=== PATIENT | male | born 1945 | race Caucasian/White ===

== ENCOUNTER → 2016-11-06 | Day surgery (SDC) | payer MEDICARE, BC ==
[2016-11-01 19:57] VITALS: BMI 24.0
[~2016-11-06] MED LIST: DEXAMETHASONE 4 MG/ML VIAL IV ONE; FENTANYL 100 MCG/2 ML VIAL IV ONE; FENTANYL 100 MCG/2 ML VIAL IV PRN; HYDROmorphone 1 MG INJECTION IV PRN; ISOVUE-300 (61%) 50 ML ONE; LABETALOL 20 MG/4 ML SYRINGE IV PRN; LIDOCAINE 100 MG PFS IV ONE; Levofloxacin 500 mg/100 ml D5W 500 MG/100 ML RTU IV ONE; MEPERIDINE 25 MG/ML TUBEX IV PRN; MIDAZOLAM 2 MG/2 ML VIAL IV ONE; ONDANSETRON HCL 4 MG ODT TAB PO PRN; ONDANSETRON HCL 4 MG/2 ML VIAL IV ONE; ONDANSETRON HCL 4 MG/2 ML VIAL IV PRN; PROMETHAZINE 25 MG/ML VIAL IV PRN; PROPOFOL 200 MG/20 ML VIAL IV ONE; hydrALAZINE 20 MG/ML VIAL IV PRN
[2016-11-06 08:42] LABS: AUTOMATED BASOPHIL 0.7 % (0-2); AUTOMATED EOSINOPHIL 1.1 % (0-5); AUTOMATED LYMPH 13.2 % (17-44); AUTOMATED MONOCYTE 3.5 % (3-10); AUTOMATED NEUTROPHIL 81.5 % (45-76); MPV 7.3 fL (7.4-10.4)
--- NOTE | 2016-11-06 08:52 | SC.ANESPOS ---
Post-Anesthesia Note LOC: [facility] Calling Post-Anesthesia Assessment: Awake, Returned to Baseline, Hemodynamically Stable , Pain Control Adequate Phase I & II Recovery Complete: Yes Apparent Anesthesia Complication: No : N PACU Discharge Time: 12:00 - Vital Signs Blood Pressure: 185/88 Pulse: 65 Resp Rate: 16 O2 Sat: 98 Temp: 96.2 F - Comments Anesthesia Discharge Time Report Time 12:00
--- NOTE | 2016-11-06 08:54 | HIM.ANES ---
Anesthesia Evaluation & Plan Diagnoses: CALCULUS OF URETER (11/06/16) - Focused Review of Systems Cardiac History: Yes: Hx Hypertension, Hx Cardiac Disorders, Hx Abnormal Cholesterol/Hyperlipidemia HEENT: Yes: Hx Hearing Impairment ([place]), Hx Vision Problem, Other HEENT Problems Respiratory: Yes: Hx Snoring Gastrointestinal: Yes: Hx Gastroesophageal Reflux Disease (Controlled), Hx Gastrointestinal Disorders, Hx Diverticulosis, Hx Colonoscopy (06/2016), Hx Endoscopy (2013) Neurological/Musculoskeletal: Yes: Hx Back Pain No: Hx Neurological Disorders Physiological: Yes Hx Depression, Yes Hx Mental/Emotional Disorders Endocrine: Yes: Hx Non-Insulin Dependent Diabetes Blood/Autoimmune: No: Hx AIDS, Hx Hepatitis (type) Smoking Status: Never smoker Hx Stress Test (date): Yes (2013 NEGATIVE PER PATIENT) Other Surgical History: CYSTOSCOPY WITH JJ STENT, PARTIAL LEFT NEPHRECTOMY 2002 - Focused Physical Exam Mallampati: Class II Thyromental Distance: Greater than 3 Any problems with anesthesia, including nausea and vomiting?: Yes (N&V) Any relatives with a history of Malignant Hyperthermia?: No Does patient have a history of Malignant Hyperthermia?: No Beta Oscar given (if appropriate): Yes Does the patient have a history of Motion Sickness-: Yes Other: Problem List Problem Status Onset Hydronephrosis Acute Kidney stones Acute Allergies Allergy/AdvReac Type Severity Reaction Status Date / Time No Known Allergies Allergy Verified 11/01/16 19:48 Home Medications Medication Instructions Recorded Last Taken Type Atorvastatin Calcium [Lipitor] 40 mg PO QHS 11/01/16 10/31/16 History Carvedilol [Coreg] 3.125 mg PO BID 11/01/16 11/01/16 History Ciprofloxacin HCl [Cipro] 500 mg PO BID #20 tab 11/01/16 Unknown Rx Quinapril HCl [Accupril] 20 mg PO BID 11/01/16 11/01/16 History Sertraline HCl [Zoloft] 100 mg PO DAILY 11/01/16 11/01/16 History Tamsulosin HCl [Flomax] 0.4 mg PO DAILY 11/01/16 11/01/16 History Sitagliptin Phos/Metformin HCl 1 each PO BID 11/05/16 Unknown History [Janumet 50-1,000 mg Tablet] Height and Weight Patient's height 5 ft 9 in Patient's weight 158 lb BMI 24.0 - Anesthetic Plan Anesthesia Type: General ASA Class: 3 -: I have examined this patient and reviewed the medical record. The patient has been assessed prior to anesthesia. Risks and benefits of anesthesia and anesthetic technique options have been discussed and all questions answered. The patient accepts the risk and desires me to proceed with the planned anesthetic.
[2016-11-06 08:56] LABS: BLOOD UREA NITROGEN 13 MG/DL (9-20); CALCIUM 8.9 MG/DL (8.4-10.2); CALCULATED OSMOLALITY 277 MOs/Kg (270-290); CHLORIDE 103 mEq/L (98-107); GLUCOSE 176 MG/DL (70-99); SODIUM LEVEL 142 mEq/L (137-146)
--- NOTE | 2016-11-06 11:10 | HIMOPRPT ---
ESTIMATED BLOOD LOSS: DATE OF PROCEDURE: 11/06/16 PREOPERATIVE DIAGNOSIS: LEFT Ureteral Stone with Renal Colic. POSTOPERATIVE DIAGNOSIS Left: Ureteral Stone with Renal Colic. PROCEDURE PERFORMED: Cystoscopy, Left Ureteroscopy, Laser Ablation of StoneS, Retrograde Pyelogram and placement of a Double-J stent on the left\ side,24]cm in length [with] a string. ANESTHESIA: General. SURGEON: Adam Reza MD PROCEDURE IN DETAIL: The patient was taken to the operating room and was given general anesthesia. After that, patient was put in lithotomy position, and was prepped and draped in usual sterile fashion. C-arm and camera was used throughout the procedure as needed. A 23-Malawian cystoscope was introduced in the bladder. Bladder was examined. [There was no evidence of any tumors or stones]. Both ureteral orifices were normally located. Then, a [0.038] guidewire was passed through the Left ureteral orifice and guided into the area of the renal pelvis bypassing the stone on this side. Then, a balloon dilating catheter was passed over the guidewire and positioned across the area of the intramural ureter. The balloon was inflated to adequate pressure. Pressure in the balloon was maintained for 30 seconds. Balloon was then deflated and removed. Guidewire was left in. Cystoscope was removed and Ureteroscopy was carried out on this side until stones were visualized. A 365 laser fiber was passed and placed in contact with the stones and with the power settings at 8 the stones were nicely pulverized to fine sand like particles. Ureteroscopy was then terminated. Cystoscope was reintroduced over the guidewire and then an open ended catheter was passed over the guidewire and retrograde pyelogram was obtained. Guidewire was then reintroduced and a [6]-Malawian [24]cm double-J stent was passed and positioned, so the upper end was coiled up in the renal pelvis, and lower end was coiled up in the bladder. The string coming out of the urethra was taped to the outside of the penis and held in place with the help of an tapes. Tolerated procedure well. The patient was returned to the recovery room area in satisfactory condition.
[2016-11-06 12:09] VITALS: TEMP 96.2
[2016-11-06 12:42] VITALS: PULSE 65
[2016-11-06 16:27] VITALS: BP 185/88
== END ==
LOC: SDC 08:06
PROVIDERS: ATTEND Urology
PROC: 0T778DZ Dilation of Left Ureter with Intraluminal Device, Via Natural or Artificial Opening Endoscopic (ICD-10-PCS; 2016-11-06)
PROC: 0TF78ZZ Fragmentation in Left Ureter, Via Natural or Artificial Opening Endoscopic (ICD-10-PCS; principal; 2016-11-06 09:25)
DX: N20.1 Calculus of ureter (principal); I10 Essential (primary) hypertension; E78.5 Hyperlipidemia, unspecified; K21.9 Gastro-esophageal reflux disease without esophagitis; E11.9 Type 2 diabetes mellitus without complications; F32.9 Major depressive disorder, single episode, unspecified; Z79.84 Long term (current) use of oral hypoglycemic drugs; Z79.899 Other long term (current) drug therapy
CPT/HCPCS: 52356; 80048; 82962; 85025; C2617; J1100; J1956; J2001; J2405; J2550; J3010; J3490; J2250